=== PATIENT | female | born 1955 | race Caucasian/White ===

== ENCOUNTER 2017-06-07 13:02 | Emergency (ER) | payer BC ==
[2017-06-07 13:16] VITALS: TEMP 98.1
[2017-06-07] MEDS ORDERED: diphenhydrAMINE 50 MG/ML 1 ML VIAL IM STA (13:49)
[2017-06-07 14:01] VITALS: BP 139/78; PULSE 104; RESP 18
--- NOTE | 2017-06-07 14:17 | ED ---
Allergic Reaction HPI - General Chief complaint: Allergic Reaction Stated complaint: Dr Sent/Allergic reaction Time Seen by Provider: 06/07/17 13:32 Source: patient, RN notes reviewed Mode of arrival: ambulatory Limitations: no limitations - History of Present Illness Initial Comments: 61-year-old female presents emergency Department chief complaint ALLERGIC reaction. Patient states she received Remicade infusion today and states that she broke out in a rash. Patient states that she had some ALLERGIC symptoms after Lasix infusion. She states she recently started Remicade. She had been on it for several years in the past but states that she stopped it because she had some procedures. Patient states that she was given Solu-Medrol and Benadryl earlier this morning started infusion at 9 AM discharge before noon. She states she developed rash on her extremities chest and back. She has no difficult swallowing or difficulty breathing. Patient states that she was directed to the emergency Department. Patient states that she actually starting to feel better and that the itchiness is improving - Related Data Home Medications Medication Instructions Recorded Confirmed Calcium Carbonate/Vitamin D3 1 tab PO DAILY 06/07/17 06/07/17 [Calcium 600-Vit D3 200 Tablet] Levothyroxine Sodium [Synthroid] 50 mcg PO DAILY 06/07/17 06/07/17 Remicade(Unknown Dose) 1 dose IV Q30D 06/07/17 06/07/17 predniSONE 5 mg PO Q48H 06/07/17 06/07/17 Allergies Allergy/AdvReac Type Severity Reaction Status Date / Time Iodinated Contrast- Oral and Allergy Rash/Hives Verified 06/07/17 13:47 IV Dye Review of Systems ROS Statement: Those systems with pertinent positive or pertinent negative responses have been documented in the HPI. ROS Other: All systems not noted in ROS Statement are negative. Past Medical History Past Medical History: Rheumatoid Arthritis (RA), Thyroid Disorder History of Any Multi-Drug Resistant Organisms: None Reported Past Surgical History: Cholecystectomy, Orthopedic Surgery Additional Past Surgical History / Comment(s): left knee Past Psychological History: No Psychological Hx Reported Smoking Status: Former smoker Past Alcohol Use History: None Reported Past Drug Use History: None Reported General Exam Limitations: no limitations General appearance: alert, in no apparent distress Head exam: Present: atraumatic, normocephalic, normal inspection Eye exam: Present: normal appearance, PERRL, EOMI. Absent: scleral icterus, conjunctival injection, periorbital swelling ENT exam: Present: normal exam, normal oropharynx, mucous membranes moist, TM's normal bilaterally, normal external ear exam Neck exam: Present: normal inspection, full ROM. Absent: tenderness, meningismus, lymphadenopathy Respiratory exam: Present: normal lung sounds bilaterally. Absent: respiratory distress, wheezes, rales, rhonchi, stridor Cardiovascular Exam: Present: regular rate, normal rhythm, normal heart sounds. Absent: systolic murmur, diastolic murmur, rubs, gallop, clicks Neurological exam: Present: alert, oriented X3, CN II-XII intact Skin exam: Present: warm, dry, intact, normal color, urticaria Course Vital Signs 06/07/17 06/07/17 13:13 13:59 Temperature 98.1 F Pulse Rate 108 H 104 H Respiratory 20 18 Rate Blood Pressure 130/70 139/78 O2 Sat by Pulse 97 96 Oximetry Medical Decision Making - Medical Decision Making 61-year-old female presented for possible ALLERGIC reaction, rash. Patient's symptoms are resolved after Benadryl. Patient we discharged is advised to continue Darvocet 6 hours 50 mg return parameters were discussed. Disposition Clinical Impression: Urticaria Disposition: HOME SELF-CARE Condition: Stable Instructions: Urticaria (ED) Additional Instructions: Please return to the Emergency Department if symptoms worsen or any other concerns. Referrals: Liana Payan [facility] [REFERRING] - 1-2 days Time of Disposition: 14:32
== END 2017-06-07 14:40 | disposition home or self-care (01) ==
LOC: EC 13:02
DX: L50.9 Urticaria, unspecified (principal); E07.9 Disorder of thyroid, unspecified; M06.9 Rheumatoid arthritis, unspecified; Z87.891 Personal history of nicotine dependence; Z91.041 Radiographic dye allergy status; Z79.52 Long term (current) use of systemic steroids; Z79.899 Other long term (current) drug therapy
CPT/HCPCS: 99283 ×2; 96372 ×2; J1200

== ENCOUNTER → 2021-03-19 | Outpatient (CLI) | payer MEDICARE, OTHER ==
--- NOTE | 2021-03-23 10:04 | PE ---
Nuclear medicine PET/CT HISTORY: Solitary pulmonary nodule on the right, initial Patient received 10.6 mCi F-18 FDG intravenously, delayed scanning was performed from the skull base to the mid thighs. An attenuation correction CT, localization CT scan was performed. Correlation to CT chest 03/10/2021 from outside institution Chest and neck: There is no supraclavicular or cervical adenopathy. No mediastinal, axillary, or neil r adenopathy. The right upper lobe soft tissue density seen on prior CT shows a similar appearance, t here is associated hypermetabolic uptake, SUV is 3.6, there is no pleural or pericardial effusion. N o endobronchial lesion. ABDOMEN: There is no adrenal mass. Patient is post cholecystectomy. No evident liver mass or retroper itoneal adenopathy, there is no suspicious uptake. The uterus shows a somewhat lobular contour, there are associated calcifications likely due to underlying fibroids. No pelvic adenopathy or free fluid. Osseous structures are unremarkable. IMPRESSION: Soft tissue density in the right upper lobe with pleural extensions seen on prior CT show s associated uptake, differential includes inflammatory change, malignancy.
== END | disposition home or self-care (01) ==
LOC: RADPETMAIN 15:26
PROVIDERS: ATTEND Nurse Practitioner Family
DX: R91.1 Solitary pulmonary nodule (principal)
CPT/HCPCS: 78815; A9552

== ENCOUNTER → 2021-06-14 | Outpatient (CLI) | payer MEDICARE, OTHER ==
[2021-06-14 13:45] LABS: African American GFR (CKD) >90 (>60 ml/min/1.73 sqM); Blood Urea Nitrogen 18 mg/dL (7-17); Non-African American GFR(CKD) >90 (>60 ml/min/1.73 sqM)
--- NOTE | 2021-06-14 15:05 | CT ---
EXAMINATION TYPE: CT chest w con DATE OF EXAM: 06/14/2021 COMPARISON: Chest x-ray 05-25, PET CT 03/19/2021 HISTORY: follow up lung nodule CT DLP: 289.3 mGycm, Automated exposure control for dose reduction was used. CONTRAST: Performed injected with 100 mL of Isovue 300. TECHNIQUE: Axial images were obtained at 5 mm thick sections. Reconstructed images are reviewed on [employer] computer in the coronal plane. FINDINGS: Portion of the thyroid visualized is normal. Reason irregular density in the lung windows in the right upper lobe corresponding to the chest x-ray finding. A solid component appears to be centrally measuring 1.8 x 1.5 cm. Previous measurement on PET/CT 2.3 x 1.8 cm Small shotty lymph nodes are in the pretracheal space. No enlarged mediastinal or hilar nodes are pr esent. The ascending aorta diameter at the level of the main pulmonary artery is 2.9 cm. The main pu lmonary artery diameter at the bifurcation is 2.[address] sections are obtained through the upper abdomen. Abdomen is essentially unremarkable. IMPRESSIONS: 1. Diminished size of a nodule with increased lung markings and lung windows surrounding in the right upper lobe.
== END | disposition home or self-care (01) ==
LOC: RADCTMAIN 12:58
PROVIDERS: ATTEND Internal Medicine
DX: R91.1 Solitary pulmonary nodule (principal)
CPT/HCPCS: 82565; 84520; 71260; 36415; Q9967

== ENCOUNTER → 2022-09-01 | Outpatient (CLI) | payer MEDICARE, OTHER ==
--- NOTE | 2022-09-07 11:22 | NM ---
EXAMINATION TYPE: NM bone scan whole body DATE OF EXAM: 09/01/2022 COMPARISON: MRI of lumbar spine 08/09/2022 thumb MRI HISTORY: Abnormal MRI lumbar spine Delayed whole-body scanning was performed following the injection of 23.7 mCi Tc 99m MDP. Images wer e acquired 3 hours post injection. FINDINGS: There is some subtle uptake at the L2 pedicles bilaterally. Left L1 may have some uptake in the rowena on of the pedicle. There is some increased uptake in the region of the T12 pedicles bilaterally. There is central uptake present T12. There is mild uptake within the T10 vertebral level. There may be some mild uptake at the costal vertebral level on the left posterior T9 and T10 levels. There is some focal uptake along the medial inferior aspect of the right iliac joint space posteriorl y. Milder uptake is along the inferior medial posterior left iliac region. There is some focal uptake in the anterior right sternal clavicular junction. COMPARISON: Uptake at the T12 level appears to correspond to the MRI findings. Additionally, the L2 v ertebral body uptake laterally uptake may correlate with the MRI findings. IMPRESSION: 1. Abnormal uptake within the thoracolumbar junction, corresponding to MRI findings, suspicious for m etastatic disease. 2. Additional possible metastatic deposits include right sternoclavicular region posterior medial william ac regions.
== END | disposition home or self-care (01) ==
LOC: RADNMMAIN 10:07
PROVIDERS: ATTEND Internal Medicine Rheumatology
DX: D75.89 Other specified diseases of blood and blood-forming organs (principal); R93.7 Abnormal findings on diagnostic imaging of other parts of musculoskeletal system
CPT/HCPCS: 78306; A9503

== ENCOUNTER → 2022-09-15 | Outpatient (CLI) | payer MEDICARE, OTHER ==
--- NOTE | 2022-09-15 16:30 | BD ---
EXAMINATION TYPE: Axial Bone Density DATE OF EXAM: 09/15/2022 COMPARISON: NONE CLINICAL HISTORY: 67 years year old Female. ICD-10 CODE: [id number] Height: 63 IN Weight: 184 LBS FRAX RISK QUESTIONS: Family History (Parent hip fracture): YES FATHER History of Fracture in Adulthood: RIB FX AGE 62 Secondary Osteoporosis: Rheumatoid Arthritis: YES RISK FACTORS HISTORY OF: History of Wrist Fracture: RT WRIST AGE 10 Active: YES Diet low in dairy products/other sources of calcium: YES Postmenopausal woman: AGE 50 MEDICATIONS: Thyroid Medications: YES Which medication: Levothyroxine How Lon+ YEARS Additional Medications: CALCIUM, VIT D, LEVOTHYROXINE, PREDNISONE FOR 5 WEEKS FOR RA/ BACK PAIN; NORC O, RA MEDS EXAM MEASUREMENTS: Bone mineral densitometry was performed using the Chat[employer] System. Bone mineral density as measured about the Lumbar spine is: ----- L1-L4(G/cm2): 0.945 T Score Values are as follows: ----- L1: -2.1 ----- L2: -2.6 ----- L3: -2.1 ----- L4: -1.3 ----- L1-L4: -2.0 Bone mineral density BASELINE Bone mineral density about the R hip (g/cm2): 0.774 Bone mineral density about the L hip (g/cm2): 0.781 T Score values are as follows: -----R Neck: -1.9 -----L Neck: -1.8 -----R Total: -1.3 -----L Total: -1.7 Bone mineral density BASELINE FRAX%s: The graph provided illustrates a 22.6 chance for a major osteoporotic fx and a 3.0 chance for the hips probability for fx in 10 years time. IMPRESSION: Osteopenia (T Score between -2.5 and -1). There is slightly increased risk of fracture and the patient may be considered for treatment. Re-Screen 2-5 years. NOTE: T-SCORE=SD OF THE YOUNG ADULT MEAN.
--- NOTE | 2022-09-16 07:47 | MR ---
EXAMINATION TYPE: MR thoracic spine wo con DATE OF EXAM: 09/15/2022 4:15 PM COMPARISON: Nuclear medicine bone scan 09/01/2022, MRI lumbar spine 08/09/2022. INDICATION: Patient age:Female; 67 years old; Reason for study: M54.6 PAIN IN THORACIC SPINE M48.54XA COLLAPSED VE; TECHNIQUE: Multi planar, multi sequence imaging was performed utilizing: T1-weighted and T2-weighted of the thoracic spine. The patient was not given Gadolinium. IV Contrast: None FINDINGS: There are scattered osseous lesions as described below: * T5 posterior vertebral body 1.5 cm high T2/higher T1/high STIR extending into the posterior elemen ts on the right which is extending into the posterior elements * T7 vertebral body 1.0 cm high T2/T1/STIR signal lesion. * T10 vertebral body measuring 2.7 x 2.3 cm low T1 and low T2 high STIR signal. * T12 spinous process diffuse high FLAIR lobe T1 intermediate T2 signal. * T12 left transverse and left inferior facet low T1/T2/high FLAIR signal lesions. Correlating with nuclear medicine bone scan of increased uptake. * Left rib 9 low T2 signal 1.8 cm lesion. Correlating with nuclear medicine bone scan of increased u ptake. Spinal alignment is within normal limits. The cord signal is maintained. There is no evidence of frac ture.. Scattered facet joint arthropathy and vertebral body osteophyte formation. There is mild disc bulging at T3-T4 without significant spinal canal stenosis. No additional evidenc e for significant spinal canal neural foraminal stenosis. IMPRESSION: 1. Vertebral body lesions of which the T10 vertebral body and T12 posterior elements and left T9 rib are suspicious for metastatic disease and correlated with prior nuclear medicine bone scan. T12 spin ous process and transverse process lesions were seen on prior MRI spine 08/09/2022. The osseous lesion s. Represent hemangiomas in T5 and T7. 2. The T10 vertebral body lesion takes up a majority of the vertebral body and is concerning for a i mpending compression pathologic fracture. 3. No significant spinal canal or neural foraminal stenosis. 4. Mild disc degeneration changes throughout the spine.
== END | disposition home or self-care (01) ==
LOC: RADBDWWP 14:23
PROVIDERS: ATTEND Internal Medicine Rheumatology
DX: M48.54XA Collapsed vertebra, not elsewhere classified, thoracic region, initial encounter for fracture (principal); M81.0 Age-related osteoporosis without current pathological fracture; M85.89 Other specified disorders of bone density and structure, multiple sites; M51.34 Other intervertebral disc degeneration, thoracic region; G95.89 Other specified diseases of spinal cord
CPT/HCPCS: 72146; 77080

== ENCOUNTER → 2022-09-23 | Outpatient (CLI) | payer MEDICARE, OTHER ==
--- NOTE | 2022-09-26 12:33 | PE ---
EXAMINATION TYPE: PET CT fusion skull to thigh DATE OF EXAM: 09/23/2022 CLINICAL INDICATION:Female, 67 years old with history of R91.1 Solitary pulmonary nodule; TECHNIQUE: Following the intravenous administration of 12.79 mCi of F-18 FDG, whole body images are performed from the skull base to the midthigh. Images are reviewed on the computer in the coronal, axial, and sagittal planes. Reconstructed rotating images are created on independent workstation and reviewed on the computer. A non-contrast CT is performed in conjunction with the PET scan. Glucose level 121 mg/dL COMPARISON: CT None, PET/CT 03/19/2021, MRI 09/15/2022, bone scan 09/01/2022 FINDINGS: Mediastinal SUV mean is 1.5. Hepatic parenchyma SUV mean is 2.8. SKULL BASE AND NECK: No suspicious radiotracer activity. CHEST, MEDIASTINUM, AND HILAR REGION: * Right upper lung nodule measuring 3.7 x 2.3 cm Max SUV 8.9 * No suspicious FDG activity within the mediastinal lymph nodes. ABDOMEN AND PELVIS: Scattered metastatic foci the largest in the left hepatic lobe measuring 2.4 x 2.1 cm Max SUV 10.7. A dditional other lesions are seen scattered throughout the hepatic parenchyma with at least 8 addition al areas. OSSEOUS STRUCTURES: Scattered suspicious FDG activity: * Vertebral body lesions of which the T10 max SUV 7.8. * T12 vertebrae posterior elements max SUV 5.9. * L5 vertebral body max SUV 4.2. * Right sacrum max SUV 7.0. * Right rib 6 Max SUV 3.5. * Left rib 9 max SUV 2.5. * Left iliac crest max SUV 4.[address]: Atherosclerosis of the arterial vasculature including the carotid bifurcations and coronary arteries. The gallbladder is surgically absent. Fat-containing umbilical hernia. Fibroid uterus with calcifications. IMPRESSION: Right upper lung 3.7 cm mass with associated osseous and hepatic metastatic disease. [facility], 09/23/2022 3:58 PM, [id number], [id number], PET CT fusion skull to thigh
== END | disposition home or self-care (01) ==
LOC: RADPETMAIN 13:29
PROVIDERS: ATTEND Internal Medicine Rheumatology
DX: C78.7 Secondary malignant neoplasm of liver and intrahepatic bile duct (principal); C79.51 Secondary malignant neoplasm of bone; R91.8 Other nonspecific abnormal finding of lung field
CPT/HCPCS: 78815; A9552

== ENCOUNTER → 2022-12-02 | Day surgery (SDC) | payer MEDICARE, OTHER ==
[~2022-12-02] MED LIST: ACETAMINOPHEN TAB 500 MG TAB PO PRN; BUPIVACAIN-EPI 0.25%-1:200,000 30 ML VIAL SQ ONE; DEXAMETHASONE SOD PHOSPHATE 4 MG/ML 1 ML VIAL IVP ONE; HEPARIN SODIUM,PORCINE/PF 5,000 UNIT/0.5 ML SYRINGE SQ PRN; KETOROLAC 15 MG/ML 1 ML VIAL ONE; LIDOCAINE 1% (10MG/ML) FOR IV START INTRADERMA PRN; LIDOCAINE 2% INJ 20 MG/ML (2 ML VIAL) ONE; MIDAZOLAM 2 MG/2 ML VIAL ONE; ONDANSETRON 4 MG/2 ML VIAL IVP PRN; PROPOFOL 10 MG/ML 20 ML VIAL IV ONE; Pre Op ABX Message 1 EACH MISC MISCELLANE ONE; SODIUM CHLORIDE 0.9% 100 ML BAG ONE; ceFAZolin 1,000 MG VIAL ONE; fentaNYL (PF) 50 MCG/ML 2 ML AMP IV PRN; fentaNYL (PF) 50 MCG/ML 2 ML AMP ONE
[2022-12-02 11:05] VITALS: TEMP 99
[2022-12-02] MEDS: LACTATED RINGERS 1,000 ML IV SCH ×3 (11:32→12:27)
[2022-12-02 13:16] VITALS: RESP 16
--- NOTE | 2022-12-02 13:19 | FL ---
Fluoroscopy History: PORT A CATH PLACEMENT Port a cath placement. 18.5 sec fl. .[id number] DAP
--- NOTE | 2022-12-02 13:24 | P.OP ---
Date of Procedure: 12/02/22 Preoperative Diagnosis: Lung cancer Postoperative Diagnosis: Lung cancer Procedure(s) Performed: Right subclavian portacath Anesthesia: MAC Surgeon: Chan Ross Estimated Blood Loss (ml): 5 Pathology: none sent Condition: stable Disposition: PACU Description of Procedure: The patient was placed on the operating table in the supine position. The patient received IV sedation. The patient's chest was prepped and draped in the usual sterile fashion. A roll had been placed between the shoulder blades in a longitudinal fashion. After prepping and draping the skin was anesthetized 1% local Xylocaine. And then using the Seldinger technique the subclavian vein was cannulated. A wire was placed into the vein and fluoroscopy position the wire at the atrial caval junction. Next the dilator sheath was placed over top the wire and the wire was withdrawn. The catheter was positioned at the atriocaval position. The catheter was placed through the sheath after the dilator was withdrawn. The sheath was then withdrawn. Position of the catheter was confirmed with fluoroscopy. The Port-A-Cath was connected to the catheter. The Port-A-Cath was flushed with saline and then heparinized saline. The skin was closed interrupted 3-0 Monocryl suture. Dermabond was applied. Patient tolerated procedure well and was sent to recovery room stable condition.
--- NOTE | 2022-12-02 13:25 | P.GSHP ---
History of Present Illness H&P Date: 12/02/22 Chief Complaint: Metastatic lung cancer Is a 67-year-old female with history of metastatic colon cancer. Patient presents today for Port-A-Cath insertion. 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 Pt has clausterphobia. Pt uses a cane or walker. Smoking Status: Former smoker - Past Family History Mother Family Medical History: Cancer Additional Family Medical History / Comment(s): possible leukemia/ in her early 90s Father Family Medical History: No Reported History Medications and Allergies Home Medications Medication Instructions Recorded Confirmed Type Levothyroxine Sodium [Synthroid] 50 mcg PO QAM 06/07/17 12/02/22 History HYDROcodone/APAP 5-325MG [Pride 2 tab PO Q8HR PRN 10/18/22 12/02/22 History 5-325] ALPRAZolam [Xanax] 0.25 mg PO DIRECTED PRN 11/29/22 12/02/22 History Calcium Citrate/Vitamin D3 500 mg PO QAM 11/29/22 12/02/22 History [Calcium Cit-Vit D3 500 mg Chew] Folic Acid 1 mg PO QAM 11/29/22 12/02/22 History Memantine HCl 5 mg PO 1200 11/29/22 12/02/22 History OLANZapine [ZyPREXA] 2.5 mg PO DIRECTED 11/29/22 12/02/22 History Scopolamine [Scopolamine 1 MG/72 1 patch TOPICAL DIRECTED 11/29/22 12/02/22 History HR patch] ondansetron HCL [Zofran] 8 mg PO Q8HR PRN 11/29/22 12/02/22 History Allergies Allergy/AdvReac Type Severity Reaction Status Date / Time Iodinated Contrast Media Allergy Rash/Hives Verified 12/02/22 10:47 [Iodinated Contrast- Oral and IV Dye] Surgical - Exam Vital Signs Temp Pulse Resp BP Pulse Ox 99.0 F 94 20 113/73 96 12/02/22 11:03 12/02/22 11:03 12/02/22 11:03 12/02/22 11:03 12/02/22 11:03 - General well developed, well nourished, no distress - Eyes PERRL - ENT normal pinna - Neck no masses - Respiratory normal expansion - Cardiovascular Rhythm: regular - Abdomen Abdomen: soft, non tender Assessment and Plan Assessment: We'll perform Port-A-Cath insertion
--- NOTE | 2022-12-02 13:51 | XR ---
EXAMINATION TYPE: XR chest 1V portable DATE OF EXAM: 12/02/2022 HISTORY: Line placement COMPARISON: 05/06/2021 TECHNIQUE: Single view of the chest is submitted. FINDINGS: Right-sided MediPort catheter with its distal tip overlying the SVC. No evidence for pneumothorax. Masslike density right midlung zone. The heart is stable. Hilar and mediastinal structures are within normal limits. Degenerative changes are seen of the dorsal spine. IMPRESSION: 1. Right-sided MediPort catheter with its distal tip overlying the SVC. No evidence for pneumothorax .
[2022-12-02 13:56] VITALS: BP 130/56; PULSE 95
== END | disposition home or self-care (01) ==
LOC: OR 10:31
PROVIDERS: ATTEND Surgery
DX: C34.90 Malignant neoplasm of unspecified part of unspecified bronchus or lung (principal); M06.9 Rheumatoid arthritis, unspecified; Z85.118 Personal history of other malignant neoplasm of bronchus and lung; Z90.49 Acquired absence of other specified parts of digestive tract; Z96.652 Presence of left artificial knee joint; Z87.891 Personal history of nicotine dependence; Z88.8 Allergy status to other drugs, medicaments and biological substances; Z79.899 Other long term (current) drug therapy
CPT/HCPCS: 77001; 71045; 36561; C1788; J2250; J1100; J2405; J0690; J3010; J1642; J1885; J2704; J2001